=== PATIENT | female | born 1925 | race Caucasian/White ===

== ENCOUNTER 2016-07-23 07:23 | Emergency (ER) | payer MEDICARE ==
[2016-07-23] MEDS ORDERED: Acetaminophen 325 MG TAB ONE (08:24)
[2016-07-23 08:28] LABS: ALT (SGPT) 10 U/L (0-55); AST (SGOT) 18 U/L (5-34); Alkaline Phosphatase 92 U/L (40-150); Anion Gap 17 mmol/L (10-20); BUN (Urea Nitrogen) 12 mg/dL (9.8-20.1); Bilirubin, Total 0.8 mg/dL (0.2-1.2); CK (CPK) 50 U/L (29-168); Calc. Creatinine Clearance 0 mL/min (70-130); Calcium 8.8 mg/dL (7.8-10.44); Carbon Dioxide 24 mmol/L (23-31); Chloride 102 mmol/L (98-107); Estimated GFR-MDRD 72; Protein, Total 6.7 g/dL (5.8-8.1)
[2016-07-23 08:32] LABS: Troponin I Less than 0.010 ng/mL (< 0.028)
[2016-07-23 08:40] LABS: Band 3 % (5-11); Hematocrit 40.4 % (36.0-47.0); Hypochromia SLIGHT = 6-15 cells (100X) (0-5/hpf); Mean Platelet Volume 7.1 fL (7.4-10.4); Neutrophil 65 % (42-75); White Blood Cell (WBC) Count 5.2 thou/uL (4.8-10.8)
[2016-07-23 09:10] LABS: Bilirubin Negative (Negative); Blood, Urine Negative (Negative); Glucose, Urine (Dipstick) Negative (Negative); Ketone, Urine Trace mg/dL (Negative); Nitrite Negative (Negative); Protein, Urine (Dipstick) Negative (Neg-Trace)
[2016-07-23 09:19] LABS: Bacteria/HPF Rare-Few HPF (None Seen); RBC/HPF None Seen HPF (0-3); WBC/HPF 0-3 HPF (0-3)
--- NOTE | 2016-07-23 09:45 | RAD ---
SINGLE VIEW CHEST HISTORY: Weakness, left arm pain, and left chest pain. COMPARISON: 03/22/2016 FINDINGS: A single view of the chest shows a normal sized cardiomediastinal silhouette. The pacem josé is unchanged in position. There is no evidence of consolidation, mass, or pleural effusion. D egenerative changes are seen in the spine and shoulders. IMPRESSION No evidence of acute cardiopulmonary disease. POS: MED
--- NOTE | 2016-07-23 11:08 | ERRECORD ---
[facility] EMERGENCY RECORD HPI WEAK-DIZZY (09:12 JROB) CHIEF COMPLAINT: Patient presents for evaluation of weakness. HISTORIAN: History provided by patient, History provided by patient's family, 89 year old female presents with multiple complaints, including general weakness, headache, chest tightness, left arm pain. She awoke at 2am with symptoms, states she feels "wore out". LOCATION: Symptoms are localized, most severe in head and chest. SEVERITY: Current severity of pain rated as 3/10. TIME COURSE: Sudden onset of symptoms, Symptoms are improving. ASSOCIATED WITH: Associated with chest pain, No associated chills, No associated fever, Associated with headache, No associated nausea, No associated palpitations, No associated vomiting. EXACERBATED BY: Patient's condition exacerbated by nothing. RELIEVED BY: Patient's condition relieved by nothing. ROS (09:14 JROB) CONSTITUTIONAL: Historian denies chills, denies fever, reports weakness, reports weight loss. EYES: Historian denies vision changes. ENT: Historian denies sore throat. CARDIOVASCULAR: Historian reports chest pain, denies syncope. RESPIRATORY: Historian denies cough, denies shortness of breath. GI: Historian denies nausea, denies vomiting. GENITOURINARY FEMALE: Historian denies dysuria. MUSCULOSKELETAL: Historian denies back pain, denies neck pain. SKIN: Historian denies rash. NEUROLOGIC: Historian reports confusion, reports headache. HEMO/LYMPHATIC: Historian denies abnormal blood clotting. ALLERGIC/IMMUNOLOGIC: Historian denies frequent infections. NOTES: All systems reviewed, negative except as described above. PAST MEDICAL HISTORY (07:50 BDON) MEDICAL HISTORY: Past medical history includes cardiac history, coronary artery disease, unspecified arrhythmia, Treated with a pacemaker, Past medical history includes history of diabetes, on insulin, Past medical history includes endocrine disease, hypothyroidism, Past medical history includes history of hyperlipidemia, high cholesterol, Past medical history includes history of hypertension, which has been treated, Past medical history includes neurological disease, peripheral neuropathy. FEMALE SURGICAL HISTORY: Surgical history of cholecystectomy, Surgical history of hysterectomy, Surgical history of thyroidectomy. SOCIAL HISTORY: Social History includes 2nd hand smoke exposure, Patient denies alcohol use, Patient denies drug use, &a-1R&a+25V*p+0X*[id number]*c202B*c15G*c2P*p-0X&a-25V&a+1R Name: Sheri Rojas : 1925 F89 MedRec: [id number] AcctNum: [id number] Prepared: Courtney Jul 23, 2016 12:33 by Interface Page 1 of 5 pMD [facility] EMERGENCY RECORD Patient has no smoking history. KNOWN ALLERGIES fentaNYL No Known Drug Allergies (Unconfirmed) pregabalin (bulk) traMADol CURRENT MEDICATIONS furosemide: TABLET : Strength - 20 mg : ORAL Patient Dose: 1 tab(s) Oral once a day (in the morning). (08:44 BDON) levothyroxine: TABLET : Strength - 100 mcg : ORAL Patient Dose: 1 tab(s) Oral once a day (in the morning). (08:44 BDON) pravastatin: TABLET : Strength - 80 mg : ORAL Patient Dose: 1 tab(s) Oral once a day (in the evening). (08:44 BDON) lisinopril: TABLET : Strength - 5 mg : ORAL Patient Dose: 1 tab(s) Oral once a day (at bedtime). (08:44 BDON) Centrum Silver: TABLET : ORAL Patient Dose: 1 tab(s) Oral once a day (in the morning). (08:44 BDON) temazepam: CAPSULE : Strength - 30 mg : ORAL Patient Dose: once a day (at bedtime). (08:44 BDON) Acetaminophen Extra Strength: TABLET : Strength - 500 mg : ORAL Patient Dose: 1 to 2 every 4 hours prn. (08:46 BDON) Aspirin Low Dose: TABLET, DELAYED RELEASE (ENTERIC COATED) : Strength - 81 mg : ORAL Patient Dose: 4 once a day. (08:46 BDON) gabapentin: CAPSULE : Strength - 400 mg : ORAL Patient Dose: 3 times a day. (08:47 BDON) Levemir: VIAL (ML) : Strength - 100 unit/mL : SUBCUTANEOUS Patient Dose: 12 units once a day (at bedtime). (08:47 BDON) meTOPROLOL tartrate: TABLET : Strength - 50 mg : ORAL Patient Dose: once a day. (08:49 BDON) omeprazole: CAPSULE,DELAYED RELEASE (ENTERIC COATED) : Strength - 40 mg : ORAL &a-1R&a+25V*p+0X*[id number]*c202B*c15G*c2P*p-0X&a-25V&a+1R Name: Sheri Rojas : 1925 F89 MedRec: [id number] AcctNum: [id number] Prepared: Courtney Jul 23, 2016 12:33 by Interface Page 2 of 5 pMD [facility] EMERGENCY RECORD Patient Dose: once a day. (08:50 BDON) VITAL SIGNS VITAL SIGNS: BP: 134/61, Pulse: 80, Resp: 18, Pain: 3, O2 sat: 97, Time: 07/23/2016 07:38. (07:38 BDON) Temp: 98.5 (Oral), Time: 07/23/2016 07:40. (07:40 BDON) BP: 144/57, Pulse: 60, Resp: 15, O2 sat: 95, Time: 07/23/2016 08:00. (08:00 BDON) BP: 141/65, Pulse: 80, Resp: 17, O2 sat: 98, Time: 07/23/2016 09:00. (09:00 BDON) BP: 138/49, Pulse: 60, Resp: 18, Pain: 1, O2 sat: 98, Time: 07/23/2016 09:00. (09:00 BDON) BP: 138/49, Pulse: 61, Resp: 13, Pain: 0, O2 sat: 98, Time: 07/23/2016 09:31. (09:31 BDON) BP: 125/57, Pulse: 61, Resp: 18, Pain: 0, O2 sat: 96, Time: 07/23/2016 10:00. (10:00 BDON) BP: 126/51, Pulse: 60, Resp: 18, O2 sat: 97, Time: 07/23/2016 10:30. (10:30 BDON) BP: 154/71, Pulse: 65, Resp: 22, O2 sat: 97, Time: 07/23/2016 11:00. (11:00 BDON) BP: 141/50, Pulse: 60, Resp: 20, Pain: 0, O2 sat: 97, Time: 07/23/2016 11:31. (11:31 BDON) BP: 134/50, Pulse: 67, Resp: 18, Pain: 0, O2 sat: 97, Time: 07/23/2016 12:00. (12:00 BDON) PHYSICAL EXAM (09:14 JROB) CONSTITUTIONAL: Vital signs reviewed, Patient afebrile, Pulse normal, Blood pressure normal, Respiratory rate normal, Patient alert and oriented to person, place and time. HEAD: Head exam normal, Head exam included findings of head atraumatic. EYES: Eye exam normal, Pupils equally round and reactive to light, Extraocular muscles intact. ENT: Pharynx exam normal, Mouth exam normal. NECK: Neck exam normal, Neck exam included findings of normal range of motion. RESPIRATORY CHEST: Breath sounds clear, No wheezing, No rales, No rhonchi. CARDIOVASCULAR: Cardiovascular assessment normal, Cardiovascular exam included findings of heart rate regular rate and rhythm, Heart sounds normal. ABDOMEN FEMALE: Abdominal exam included findings of abdomen nontender, no distension, no peritoneal signs. BACK: Back exam normal, Back exam included findings of normal inspection. UPPER EXTREMITY: Upper extremity exam normal, Upper extremity exam included findings of inspection normal, Motor strength normal, Sensation intact. LOWER EXTREMITY: Lower extremity exam normal, Lower extremity exam included findings of inspection normal, Motor strength normal, &a-1R&a+25V*p+0X*g4205N*c202B*c15G*c2P*p-0X&a-25V&a+1R Name: Sheri Rojas : 1925 F89 MedRec: [id number] AcctNum: [id number] Prepared: Courtney Jul 23, 2016 12:33 by Interface Page 3 of 5 D [facility] EMERGENCY RECORD Sensation intact. NEURO: Neuro exam findings include patient oriented to person, place and time, no focal motor deficits, no focal sensory deficits, heel to noyola is clumsy bilaterally. SKIN: Skin exam included findings of skin warm, dry. EKG INTERPRETATION (07:52 JROB) 12 LEAD EKG INTERPRETATION: 12 lead EKG interpreted by Emergency Department Physician at time of study, 12 lead EKG shows, paced rhythm, Rate (beats per minute): 74, with no ectopics, Conduction with, T waves normal, Clinical impression:, Ventricular pacing, normal capture. RADIOLOGYINTERPRETATION (09:54 JROB) CHEST: Chest films negative, no acute cardiopulmonary findings. SILK EXAMINER: Preliminary review of x-rays by, Radiologist. MEDICATION ADMINISTRATION SUMMARY Drug Name: Tylenol, Dose Ordered: 650 mg, Route: Oral, Status: Given, Time: 08:28 07/23/2016, Drug Name: aspirin oral, Dose Ordered: 324 mg, Route: Oral, Status: Given, Time: 08:28 07/23/2016, Detailed record available in Medication Service section. DOCTOR NOTES (09:56 JROB) TEXT: Cardiac enzymes negative x 1 set. Labs notable for glucose 260, otherwise unremarkable. Will give subq insulin. Family has requested transfer to [place] since patient is followed by physicians there. Discussed with Dr. Restrepo at [facility], will proceed with transfer. PATIENT STATUS: Patient has improved since arrival to emergency department. PATIENT PLAN: The patient requires a transfer and will be transferred, per family request, due to availability of specialty care, Transfer form completed. DATA REVIEWED: Lab data reviewed, Xray data reviewed, Reviewed EKG. PROBLEM LIST No recorded problems DIAGNOSIS DIFFERENTIAL: Based on history, exam and ancillary studies if indicated: Impression: acute coronary syndrome, Impression: acute myocardial infarction, Impression: atypical chest pain, Impression: chest pain of unclear etiology, Impression: chest wall pain, Impression: GERD, Impression: generalized weakness, Impression: lightheadedness, &a-1R&a+25V*p+0X*[id number]*c202B*c15G*c2P*p-0X&a-25V&a+1R Name: Sheri Rojas : 1925 F89 MedRec: [id number] AcctNum: [id number] Prepared: Courtney Jul 23, 2016 12:33 by Interface Page 4 of 5 pMD [facility] EMERGENCY RECORD Impression: cardiovascular event, Impression: electrolyte abnormality, Impression: dehydration, Impression: UTI, Impression: infection, Impression: depression, Diagnoses considered are not limited to those documented above. (09:58 JROB) FINAL: PRIMARY: CHEST PAIN UNSPECIFIED, ADDITIONAL: Weakness. (09:59 JROB) PRESCRIPTION No recorded prescriptions DISPOSITION PATIENT: Disposition Type: Transfer, Disposition: [facility]. (09:59 JROB) Patient left the department. (12:29 BDON) King: BDON=Luis, RN, Luisa ROBERTSONOB=MD Jose R, Paco &a-1R&a+25V*p+0X*s5170X*c202B*c15G*c2P*p-0X&a-25V&a+1R Name: Sheri Rojas : 1925 F89 MedRec: [id number] AcctNum: [id number] Prepared: Courtney Jul 23, 2016 12:33 by Interface Page 5 of 5 pMD [facility]TDD
--- NOTE | 2016-07-23 11:41 | PICIS ---
[facility] EMERGENCY RECORD TRIAGE (SunJul 23, 2016 07:28 BDON) TRIAGE NOTES: Weakness, hurts all over, left arm pain, headache and left chest pain. (SunJul 23, 2016 07:28 BDON) PATIENT: NAME: Sheri Rojas, AGE: 89, GENDER: female, : [id number], TIME OF GREET: SunJul 23, 2016 07:24, PREFERRED LANGUAGE: Senegalese, ETHNICITY: Not or , ECODE BILLING MAP: [facility], SSN: [id number], Zip Code: [address], KG WEIGHT: 61.23, PHONE: , , , PERSON ID: [id number], PCP: out of town. (SunJul 23, 2016 07:28 BDON) COMPLAINT: MULTIPLE COMPLAINTS. (07:37 MCBE) ADMISSION: URGENCY: 2 Emergent, ADMISSION SOURCE: Home, TRANSPORT: Walk-in, BED: TRIAGE. (SunJul 23, 2016 07:28 BDON) ASSESSMENT: Assessment: Left side chest pain, feels weak, generalized pain and a headache, Symptoms began 6 hours ago. (07:50 BDON) LMP: LMP: Menopause. (07:50 BDON) TREATMENTS IN PROGRESS: Treatments given Prehospital: none. (07:50 BDON) PROVIDERS: TRIAGE NURSE: Luisa Smith RN. (SunJul 23, 2016 07:28 BDON) PREVIOUS VISIT ALLERGIES: No Known Drug Allergies. (SunJul 23, 2016 07:28 BDON) No Known Drug Allergies. (07:50 BDON) KNOWN ALLERGIES fentaNYL No Known Drug Allergies (Unconfirmed) pregabalin (bulk) traMADol CURRENT MEDICATIONS furosemide: TABLET : Strength - 20 mg : ORAL Patient Dose: 1 tab(s) Oral once a day (in the morning). (08:44 BDON) levothyroxine: TABLET : Strength - 100 mcg : ORAL Patient Dose: 1 tab(s) Oral once a day (in the morning). (08:44 BDON) pravastatin: TABLET : Strength - 80 mg : ORAL Patient Dose: 1 tab(s) Oral once a day (in the evening). (08:44 BDON) lisinopril: TABLET : Strength - 5 mg : ORAL Patient Dose: 1 tab(s) Oral once a day (at bedtime). (08:44 BDON) Centrum Silver: TABLET : ORAL &a-1R&a+25V*p+0X*c0610W*c202B*c15G*c2P*p-0X&a-25V&a+1R Name: Sheri Rojas : 1925 F89 MedRec: [id number] AcctNum: [id number] Prepared: Courtney Jul 23, 2016 12:39 by Interface Page 1 of 11 pMD [facility] EMERGENCY RECORD Patient Dose: 1 tab(s) Oral once a day (in the morning). (08:44 BDON) temazepam: CAPSULE : Strength - 30 mg : ORAL Patient Dose: once a day (at bedtime). (08:44 BDON) Acetaminophen Extra Strength: TABLET : Strength - 500 mg : ORAL Patient Dose: 1 to 2 every 4 hours prn. (08:46 BDON) Aspirin Low Dose: TABLET, DELAYED RELEASE (ENTERIC COATED) : Strength - 81 mg : ORAL Patient Dose: 4 once a day. (08:46 BDON) gabapentin: CAPSULE : Strength - 400 mg : ORAL Patient Dose: 3 times a day. (08:47 BDON) Levemir: VIAL (ML) : Strength - 100 unit/mL : SUBCUTANEOUS Patient Dose: 12 units once a day (at bedtime). (08:47 BDON) meTOPROLOL tartrate: TABLET : Strength - 50 mg : ORAL Patient Dose: once a day. (08:49 BDON) omeprazole: CAPSULE,DELAYED RELEASE (ENTERIC COATED) : Strength - 40 mg : ORAL Patient Dose: once a day. (08:50 BDON) VITAL SIGNS VITAL SIGNS: BP: 134/61, Pulse: 80, Resp: 18, Pain: 3, O2 sat: 97, Time: 07/23/2016 07:38. (07:38 BDON) Temp: 98.5 (Oral), Time: 07/23/2016 07:40. (07:40 BDON) BP: 144/57, Pulse: 60, Resp: 15, O2 sat: 95, Time: 07/23/2016 08:00. (08:00 BDON) BP: 141/65, Pulse: 80, Resp: 17, O2 sat: 98, Time: 07/23/2016 09:00. (09:00 BDON) BP: 138/49, Pulse: 60, Resp: 18, Pain: 1, O2 sat: 98, Time: 07/23/2016 09:00. (09:00 BDON) BP: 138/49, Pulse: 61, Resp: 13, Pain: 0, O2 sat: 98, Time: 07/23/2016 09:31. (09:31 BDON) BP: 125/57, Pulse: 61, Resp: 18, Pain: 0, O2 sat: 96, Time: 07/23/2016 10:00. (10:00 BDON) BP: 126/51, Pulse: 60, Resp: 18, O2 sat: 97, Time: 07/23/2016 10:30. (10:30 BDON) BP: 154/71, Pulse: 65, Resp: 22, O2 sat: 97, Time: 07/23/2016 11:00. (11:00 BDON) BP: 141/50, Pulse: 60, Resp: 20, Pain: 0, O2 sat: 97, Time: 07/23/2016 11:31. (11:31 BDON) BP: 134/50, Pulse: 67, Resp: 18, Pain: 0, O2 sat: 97, Time: 07/23/2016 12:00. (12:00 BDON) NURSING ASSESSMENT: CARDIOVASCULAR (08:00 BDON) CONSTITUTIONAL: Patient arrives, via hospital wheelchair, History &a-1R&a+25V*p+0X*o9251V*c202B*c15G*c2P*p-0X&a-25V&a+1R Name: Sheri Roajs : 1925 F89 MedRec: [id number] AcctNum: [id number] Prepared: Courtney Jul 23, 2016 12:39 by Interface Page 2 of 11 pMD [facility] EMERGENCY RECORD obtained from patient, Patient appears comfortable, Patient cooperative, Patient alert, Patient is, confused, intermittent confusion, family states normal, hard of hearing, Skin warm, Skin dry, Skin normal in color. CARDIOVASCULAR: Cardiovascular assessment findings include heart rate normal, Associated with weakness, Notes: paced. RESPIRATORY/CHEST: Respiratory assessment findings include respiratory effort easy, Respirations regular, Conversing normally, Neck and chest exam findings include trachea midline. SAFETY: Cart/Stretcher in lowest position. NURSING PROCEDURE: BROWN SOURER (07:30 BDON) PATIENT IDENTIFIER: Patient actively involved in identification process. BROWN SOURER: Cardiac monitoring indicated for complaint of chest pain, Patient placed on cardiac nurse, Patient placed on non-invasive blood pressure monitor, Patient placed on continuous pulse oximetry. SAFETY: Hospital ID band on. NURSING PROCEDURE: EKG CHART (07:28 BDON) EK lead EKG performed on the left chest. NURSING PROCEDURE: IV (08:13 BDON) PATIENT IDENITIFIER: Patient actively involved in identification process. IV SITE 1: IV established, to the right hand, using a 22 gauge catheter, in one attempt, Labs drawn at time of placement, labeled in the presence of the patient and sent to lab. NURSING PROCEDURE: NURSE NOTES NURSES NOTES: Notes: placed on bedpan. (08:42 BDON) Notes: Wheelchair to restroom. (08:50 BDON) Notes: Family and patient aware we are "working" on transfer. (09:54 BDON) Warm blanket given to patient, Notes: Aware we are waiting on acceptance. (10:20 BDON) Notes: Family concerned about time frame of not having acceptance, explained procedure. (10:39 BDON) Meal tray given to patient. (11:00 BDON) Notes: transfer request was initiated at 0841 but having difficulty in gaining acceptance. Dr. Odell spoke with Dr. Swann who wanted to speak with Pt's before acceptance. Have not had response. Requested Transfer Center do follow up and request that transfer process be expedited - patient and family kept informed regarding the acceptance efforts made. Both are cooperative though anxious to be moved. Daughter inquired if patient could be released and her drive her over but explained the need for ambulance for monitoring of EKG, IV and pt. status. Agreeable to await acceptance and transfer &a-1R&a+25V*p+0X*d7447B*c202B*c15G*c2P*p-0X&a-25V&a+1R Name: Sheri Rojas : 1925 F89 MedRec: [id number] AcctNum: [id number] Prepared: Courtney Jul 23, 2016 12:39 by Interface Page 3 of 11 D [facility] EMERGENCY RECORD via ambulance. (11:20 BELE) Notes: Acceptance from [facility], family aware. (12:07 BDON) NURSING PROCEDURE: TRANSFER (12:20 BDON) TRANSFER: Reason for transfer patient request, Diagnosis: Chest Pain, Accepting institution: [facility], Accepting physician: Mahesh, Referring physician: Jose R, Transported by urgent ambulance, accompanied by emergency medical services personnel, Copy of patient record prepared for receiving facility, Copy of diagnostic studies, Status of patient's valuables documented on chart, Medication reconciliation form prepared and sent to receiving facility. ORDER DETAILS Order Name: Cardiac Profile w/CKMB & Troponin - I, Status: Active, Time: 07:39 07/23/2016, User: AGUILAR, - Ordered for: MD Odell Joseph, - Entered by: MD Odell Joseph - Courtney Jul 23, 2016 07:39, - Quantity: 1, Order Name: CBC with Differential, Status: Active, Time: 07:39 07/23/2016, User: AGUILAR, - Ordered for: MD Odell Joseph, - Entered by: MD Odell Joseph - Courtney Jul 23, 2016 07:39, - Quantity: 1, Order Name: CK (CPK), Status: Active, Time: 07:39 07/23/2016, User: AGUILAR, - Ordered for: MD Odell Joseph, - Entered by: MD Odell Joseph - Courtney Jul 23, 2016 07:39, - Quantity: 1, Order Name: Comprehensive Metabolic Panel, Status: Active, Time: 07:39 07/23/2016, User: AGUILAR, - Ordered for: MD Odell Joseph, - Entered by: MD Odell Joseph - Courtney Jul 23, 2016 07:39, - Quantity: 1, Order Name: Culture, Urine, Status: Active, Time: 08:07 07/23/2016, User: AGUILAR, - Ordered for: MD Odell Joseph, - Entered by: MD Odell Joseph - Courtney Jul 23, 2016 08:07, - Quantity: 1, Order Name: EKG 12 Lead in Emergency Room, Status: Active, Time: 07:39 07/23/2016, User: AGUILAR, - Ordered for: MD Odell Joseph, - Entered by: MD Odell Joseph - Sun Jul 23, 2016 07:39, - Quantity: 1, Order Name: SALINE LOCK, Status: Done, Time: 08:08 07/23/2016, User: AIDA, - Ordered for: MD Odell Joseph, - Entered by: MD Odell Joseph - Sun Jul 23, 2016 07:39, &a-1R&a+25V*p+0X*e6196D*c202B*c15G*c2P*p-0X&a-25V&a+1R Name: Sheri Rojas : 1925 F89 MedRec: [id number] AcctNum: [id number] Prepared: Courtney Jul 23, 2016 12:39 by Interface Page 4 of 11 [facility] EMERGENCY RECORD - Quantity: 1, Order Name: Urinalysis with Microscopic, Status: Active, Time: 08:07 07/23/2016, User: AGUILAR, - Ordered for: MD Odell Joseph, - Entered by: MD Odell Joseph - Sun Jul 23, 2016 08:07, - Quantity: 1, Order Name: XR Chest 1 View Portable, Status: Active, Time: 07:39 07/23/2016, User: AGUILAR, - Ordered for: MD Odell Joseph, - Entered by: MD Odell Joseph - Sun Jul 23, 2016 07:39, - Quantity: 1. MEDICATION ADMINISTRATION SUMMARY Drug Name: Tylenol, Dose Ordered: 650 mg, Route: Oral, Status: Given, Time: 08:28 07/23/2016, Drug Name: aspirin oral, Dose Ordered: 324 mg, Route: Oral, Status: Given, Time: 08:28 07/23/2016, Detailed record available in Medication Service section. MEDICATION SERVICE ( AGUILAR) aspirin oral: Order: aspirin oral (aspirin) - Dose: 324 mg : Oral Schedule: Now Ordered by: Paco Odell MD Entered by: MD Courtney Hirsch Jul 23, 2016 08:06 Documented as given by: DAMIEN Eduardo Jul 23, 2016 08:28 Patient, Medication, Dose, Route and Time verified prior to administration. Site: Medication administered P.O., Correct patient, time, route, dose and medication confirmed prior to administration, Patient advised of actions and side-effects prior to administration, Allergies confirmed and medications reviewed prior to administration. Tylenol: Order: Tylenol (acetaminophen) - Dose: 650 mg : Oral Schedule: Now Ordered by: Paco Odell MD Entered by: MD Courtney Hirsch Jul 23, 2016 08:06 Documented as given by: DAMIEN Eduardo Jul 23, 2016 08:28 Patient, Medication, Dose, Route and Time verified prior to administration. Site: Medication administered P.O., Correct patient, time, route, dose and medication confirmed prior to administration, Patient advised of actions and side-effects prior to administration, Allergies confirmed and medications reviewed prior to administration. HPI WEAK-DIZZY (09:12 JROB) CHIEF COMPLAINT: Patient presents for evaluation of weakness. HISTORIAN: History provided by patient, History provided by patient's family, 89 year old female &a-1R&a+25V*p+0X*o4120H*c202B*c15G*c2P*p-0X&a-25V&a+1R Name: Sheri Rojas : 1925 F89 MedRec: [id number] AcctNum: [id number] Prepared: Courtney Jul 23, 2016 12:39 by Interface Page 5 of 11 pMD [facility] EMERGENCY RECORD presents with multiple complaints, including general weakness, headache, chest tightness, left arm pain. She awoke at 2am with symptoms, states she feels "wore out". LOCATION: Symptoms are localized, most severe in head and chest. SEVERITY: Current severity of pain rated as 3/10. TIME COURSE: Sudden onset of symptoms, Symptoms are improving. ASSOCIATED WITH: Associated with chest pain, No associated chills, No associated fever, Associated with headache, No associated nausea, No associated palpitations, No associated vomiting. EXACERBATED BY: Patient's condition exacerbated by nothing. RELIEVED BY: Patient's condition relieved by nothing. ROS (09:14 JROB) CONSTITUTIONAL: Historian denies chills, denies fever, reports weakness, reports weight loss. EYES: Historian denies vision changes. ENT: Historian denies sore throat. CARDIOVASCULAR: Historian reports chest pain, denies syncope. RESPIRATORY: Historian denies cough, denies shortness of breath. GI: Historian denies nausea, denies vomiting. GENITOURINARY FEMALE: Historian denies dysuria. MUSCULOSKELETAL: Historian denies back pain, denies neck pain. SKIN: Historian denies rash. NEUROLOGIC: Historian reports confusion, reports headache. HEMO/LYMPHATIC: Historian denies abnormal blood clotting. ALLERGIC/IMMUNOLOGIC: Historian denies frequent infections. NOTES: All systems reviewed, negative except as described above. PAST MEDICAL HISTORY (07:50 BDON) MEDICAL HISTORY: Past medical history includes cardiac history, coronary artery disease, unspecified arrhythmia, Treated with a pacemaker, Past medical history includes history of diabetes, on insulin, Past medical history includes endocrine disease, hypothyroidism, Past medical history includes history of hyperlipidemia, high cholesterol, Past medical history includes history of hypertension, which has been treated, Past medical history includes neurological disease, peripheral neuropathy. FEMALE SURGICAL HISTORY: Surgical history of cholecystectomy, Surgical history of hysterectomy, Surgical history of thyroidectomy. SOCIAL HISTORY: Social History includes 2nd hand smoke exposure, Patient denies alcohol use, Patient denies drug use, Patient has no smoking history. PHYSICAL EXAM (09:14 JROB) CONSTITUTIONAL: Vital signs reviewed, Patient afebrile, Pulse &a-1R&a+25V*p+0X*y5533Z*c202B*c15G*c2P*p-0X&a-25V&a+1R Name: Sheri Rojas : 1925 F89 MedRec: [id number] AcctNum: [id number] Prepared: Courtney Jul 23, 2016 12:39 by Interface Page 6 of 11 pMD [facility] EMERGENCY RECORD normal, Blood pressure normal, Respiratory rate normal, Patient alert and oriented to person, place and time. HEAD: Head exam normal, Head exam included findings of head atraumatic. EYES: Eye exam normal, Pupils equally round and reactive to light, Extraocular muscles intact. ENT: Pharynx exam normal, Mouth exam normal. NECK: Neck exam normal, Neck exam included findings of normal range of motion. RESPIRATORY CHEST: Breath sounds clear, No wheezing, No rales, No rhonchi. CARDIOVASCULAR: Cardiovascular assessment normal, Cardiovascular exam included findings of heart rate regular rate and rhythm, Heart sounds normal. ABDOMEN FEMALE: Abdominal exam included findings of abdomen nontender, no distension, no peritoneal signs. BACK: Back exam normal, Back exam included findings of normal inspection. UPPER EXTREMITY: Upper extremity exam normal, Upper extremity exam included findings of inspection normal, Motor strength normal, Sensation intact. LOWER EXTREMITY: Lower extremity exam normal, Lower extremity exam included findings of inspection normal, Motor strength normal, Sensation intact. NEURO: Neuro exam findings include patient oriented to person, place and time, no focal motor deficits, no focal sensory deficits, heel to noyola is clumsy bilaterally. SKIN: Skin exam included findings of skin warm, dry. LAB INTERPRETATION (09:54 JROB) INTERPRETATION: I reviewed the lab results, CBC normal, Chemistry abnormal, Glucose elevated, Chemistry otherwise normal, Cardiac enzymes normal, Urinalysis abnormal, positive for ketones, small leuk esterase, no WBC's, 7-10 squamous cells. EVENTS TRANSFER: Triage to Emergency Triage. (07:28 BDON) Emergency Triage to Emergency Room -02. (07:39 BDON) Removed from Emergency Emergency Room -02. (12:29 BDON) RADIOLOGYINTERPRETATION (09:54 JROB) CHEST: Chest films negative, no acute cardiopulmonary findings. CONSTRUCTION QUALITY CONTROL MANAGER: Preliminary review of x-rays by, Radiologist. EKG INTERPRETATION (07:52 JROB) 12 LEAD EKG INTERPRETATION: 12 lead EKG interpreted by Emergency Department Physician at time of study, 12 lead EKG shows, paced rhythm, Rate (beats per minute): 74, with no ectopics, Conduction with, T waves normal, Clinical impression:, &a-1R&a+25V*p+0X*f6307G*c202B*c15G*c2P*p-0X&a-25V&a+1R Name: Sheri Rojas : 1925 F89 MedRec: [id number] AcctNum: [id number] Prepared: Courtney Jul 23, 2016 12:39 by Interface Page 7 of 11 pMD [facility] EMERGENCY RECORD Ventricular pacing, normal capture. O2SAT INTERPRETATION (09:56 JROB) O2SAT: Single pulse oximetry, Oxygen saturation 98%, on room air, Oxygen saturation interpretation: Normal, No intervention required. DOCTOR NOTES (09:56 JROB) TEXT: Cardiac enzymes negative x 1 set. Labs notable for glucose 260, otherwise unremarkable. Will give subq insulin. Family has requested transfer to [place] since patient is followed by physicians there. Discussed with Dr. Restrepo at [facility], will proceed with transfer. PATIENT STATUS: Patient has improved since arrival to emergency department. PATIENT PLAN: The patient requires a transfer and will be transferred, per family request, due to availability of specialty care, Transfer form completed. DATA REVIEWED: Lab data reviewed, Xray data reviewed, Reviewed EKG. PROBLEM LIST No recorded problems DIAGNOSIS DIFFERENTIAL: Based on history, exam and ancillary studies if indicated: Impression: acute coronary syndrome, Impression: acute myocardial infarction, Impression: atypical chest pain, Impression: chest pain of unclear etiology, Impression: chest wall pain, Impression: GERD, Impression: generalized weakness, Impression: lightheadedness, Impression: cardiovascular event, Impression: electrolyte abnormality, Impression: dehydration, Impression: UTI, Impression: infection, Impression: depression, Diagnoses considered are not limited to those documented above. (09:58 JROB) FINAL: PRIMARY: CHEST PAIN UNSPECIFIED, ADDITIONAL: Weakness. (09:59 JROB) DISPOSITION PATIENT: Disposition Type: Transfer, Disposition: [facility]. (09:59 JROB) Patient left the department. (12:29 BDON) PRESCRIPTION No recorded prescriptions IMAGING *EKG: Image captured from scanner. (11:46 BELE) CONSENTS: Image captured from scanner. (12:08 BELE) &a-1R&a+25V*p+0X*r9092M*c202B*c15G*c2P*p-0X&a-25V&a+1R Name: Sheri Rojas : 1925 F89 MedRec: [id number] AcctNum: [id number] Prepared: Courtney Jul 23, 2016 12:39 by Interface Page 8 of 11 pMD [facility] EMERGENCY RECORD MEMORAN: Image captured from scanner. (12:08 BELE) *SUPPLY CHARGE SHEET: Image captured from scanner. (12:28 BDON) ADMIN DIGITAL SIGNATURE: MD Odell Joseph. (09:59 JROB) MD Odell Joseph. (10:00 JROB) DAMIEN Smith, Luisa. (12:29 BDON) RESULTS RADIOLOGY: XR Chest 1 View Portable Observe DT: [place] Jul 23, 2016 07:41, CXRP SINGLE VIEW CHEST HISTORY: Weakness, left arm pain, and left chest pain. COMPARISON: 03/22/2016 FINDINGS: A single view of the chest shows a normal sized cardiomediastinal silhouette. The pacem josé is unchanged in position. There is no evidence of consolidation, mass, or pleural effusion. D egenerative changes are seen in the spine and shoulders. IMPRESSION No evidence of acute cardiopulmonary disease. POS: MED . (09:59 JROB) LABORATORY: CK (CPK) Collection DT: [place] Jul 23, 2016 08:09, CK (CPK) 50 U/L, Range (29-168). (08:32 JROB) Comprehensive Metabolic Panel Collection DT: [place] Jul 23, 2016 08:09, Sodium 138 mmol/L, Range (136-145), Potassium 4.7 mmol/L, Range (3.5-5.1), Chloride 102 mmol/L, Range (98-107), Carbon Dioxide 24 mmol/L, Range (23-31), Anion Gap 17 mmol/L, Range (10-20), BUN (Urea Nitrogen) 12 mg/dL, Range (9.8-20.1), Creatinine 0.76 mg/dL, Range (0.6-1.1), Estimated GFR-MDRD 72 , Reference Range for Estimated GFR: Greater than 90, mL/min/1.73 m2 NOTE: The MDRD equation has not been validated for use, with the elderly (over 70 years of age), women, patients with, serious comorbid condition or persons with extremes of body size, muscle, mass, or nutritional status. , *Glucose 260 - H mg/dL, Range (83-110), Calcium 8.8 mg/dL, Range (7.8-10.44), Bilirubin, Total 0.8 mg/dL, Range (0.2-1.2), &a-1R&a+25V*p+0X*p3381C*c202B*c15G*c2P*p-0X&a-25V&a+1R Name: Sheri Rojas : 1925 F89 MedRec: [id number] AcctNum: [id number] Prepared: Courtney Jul 23, 2016 12:39 by Interface Page 9 of 11 pMD [facility] EMERGENCY RECORD Protein, Total 6.7 g/dL, Range (5.8-8.1), NOTE: Plasma values are generally 0.3 to 0.5 g/dL higher than serum values, due to the presence of fibrinogen. , Albumin 3.7 g/dL, Range (3.4-4.8), Globulin 3.0 g/dL, Range (2.4-3.5), Alb/Glob Ratio 1.2 g/dL, Range (1.2-2.2), Alkaline Phosphatase 92 U/L, Range (40-150), AST (SGOT) 18 U/L, Range (5-34), ALT (SGPT) 10 U/L, Range (0-55). (08:32 JROB) Urinalysis with Microscopic Collection DT: Courtney Jul 23, 2016 09:03, Color Yellow , Range (Yellow), Clarity Hazy , Range (Clear), Specific Rifle, Urine 1.015 , Range (1.005-1.030), pH, Urine 7.0 , Range (5.0-9.0), *Leukocyte Small - H , Range (Negative), Nitrite Negative , Range (Negative), Protein, Urine (Dipstick) Negative mg/dL, Range (Neg-Trace), Glucose, Urine (Dipstick) Negative mg/dL, Range (Negative), *Ketone, Urine Trace - H mg/dL, Range (Negative), *Urobilinogen 4.0 - H mg/dL, Range (0.2-1.0), Bilirubin Negative , Range (Negative), Blood, Urine Negative , Range (Negative), RBC/HPF None Seen HPF, Range (0-3), WBC/HPF 0-3 HPF, Range (0-3), *Squamous Epithelial 7-10 - H HPF, Range (0-3), Bacteria/HPF Rare-Few HPF, Range (None Seen). (09:30 JROB) CBC with Differential Collection DT: Courtney Jul 23, 2016 08:09, White Blood Cell (WBC) Count 5.2 thou/uL, Range (4.8-10.8), Red Blood Cell (RBC) Count 4.30 mill/uL, Range (4.20-5.40), Hemoglobin 13.1 g/dL, Range (12.0-16.0), Hematocrit 40.4 %, Range (36.0-47.0), Mean Corpuscular Volume 94.1 fl, Range (81.0-99.0), Mean Corpuscular Hemoglobin 30.4 pg, Range (27.0-31.0), Mean Corpuscular HGB CONC 32.3 g/dL, Range (32.0-36.0), RBC Distribution Width 12.1 %, Range (11.5-14.5), Platelet Count 202 thou/uL, Range (130-400), *Mean Platelet Volume 7.1 - L fL, Range (7.4-10.4), Neutrophil 65 %, Range (42-75), *Band 3 - L %, Range (5-11), Lymphocytes 22 %, Range (21-51), Monocytes 8 %, Range (0-10), Eosinophils 1 %, Range (0-10), Basophils 1 %, Range (0-2), Hypochromia SLIGHT = 6-15 cells (100X), Range (0-5/hpf), PLT Morphology Comment Appears Adequate . (09:30 JROB) Cardiac Profile w/CKMB & TropI Collection DT: Courtney Jul 23, 2016 08:09, CKMB 1.6 ng/mL, Range (0-6.6), Troponin I Less than 0.010 ng/mL, Range (< 0.028), Reference Range &a-1R&a+25V*p+0X*j5902Q*c202B*c15G*c2P*p-0X&a-25V&a+1R Name: Sheri Rojas : 1925 F89 MedRec: [id number] AcctNum: [id number] Prepared: Courtney Jul 23, 2016 12:39 by Interface Page 10 of 11 pMD [facility] EMERGENCY RECORD , 0.00 - 0.028 ng/mL Negative 0.029 - 0.29 ng/mL , Indeterminate Greater or Equal to 0.3 ng/mL Strongly suggests AL , . (09:30 JRASHTYN) King: AIDA=DAMIEN Smith, Luisa WINSTON=DAMIEN Cárdenas, Beverly SHEIKH=MD Jose R, Paco MCBE=Elana Wallace &a-1R&a+25V*p+0X*s3831I*c202B*c15G*c2P*p-0X&a-25V&a+1R Name: Sheri Rojas : 1925 F89 MedRec: [id number] AcctNum: [id number] Prepared: Courtney Jul 23, 2016 12:39 by Interface Page 11 of 11 pMD MTDD
== END 2016-07-23 12:20 | disposition short-term general hospital (02) ==
LOC: NAV ERS 07:23
DX: R07.9 Chest pain, unspecified (principal); R53.1 Weakness; E11.9 Type 2 diabetes mellitus without complications; E03.9 Hypothyroidism, unspecified; E78.5 Hyperlipidemia, unspecified; I10 Essential (primary) hypertension; Z90.49 Acquired absence of other specified parts of digestive tract; Z90.710 Acquired absence of both cervix and uterus
CPT/HCPCS: 71010; 80053; 81001; 82550; 82553; 84484; 85025; 87086; 93005

== ENCOUNTER 2016-10-20 06:02 | Emergency (ER) | payer MEDICARE ==
[2016-10-20] MEDS ORDERED: Acetaminophen 325 MG TAB ONE (07:28)
--- NOTE | 2016-10-20 07:43 | CT ---
CT BRAIN WITHOUT CONTRAST: HISTORY: Fall. No loss of consciousness, headache. FINDINGS: Comparison is made with the exam of 03/22/16. Densely calcified meningiomas in the medial left frontal lobe anteriorly, anterior right frontal lob e, and the medial aspect of the left middle cranial fossa are stable. The tiny low-density focus al kimberlee the anterior interhemispheric falx consistent with a small lipoma is again seen. Changes of cortical atrophy and chronic small-vessel ischemic disease are again noted. The ventricu lar size is stable and the basilar cisterns are patent. No evidence of acute infarct, hemorrhage, m idline shift, or abnormal extraaxial fluid collections are seen. The bony calvarium is intact. The visualized paranasal sinuses and mastoid air cells are well aerated. IMPRESSION: 1. No CT evidence of acute intracranial process. 2. Stable multiple calcified intracranial meningiomas. POS: JAZZY
--- NOTE | 2016-10-20 07:55 | RAD ---
4 VIEWS RIGHT ELBOW: Date: 10/20/16 HISTORY: Fall with right arm pain. FINDINGS: AP, lateral, and both oblique views of right elbow obtained. There is a moderately displaced fractur e through the distal right humeral condyles. The distal fracture fragment is moderately displaced. T he proximal aspect of the humerus and radius are unremarkable. IMPRESSION: Distal right humeral fracture. POS: [facility]
--- NOTE | 2016-10-20 08:20 | RAD ---
AP AND OBLIQUE VIEWS RIGHT RIBS: HISTORY: Fall with right rib pain. FINDINGS: AP and oblique views right ribs were obtained. No evidence of right rib fractures, subluxations, or bony lesions seen. IMPRESSION: Normal right rib series. POS: [id number]
== END 2016-10-20 10:05 | disposition home or self-care (01) ==
LOC: NAV ERS 06:02
DX: S42.401A Unspecified fracture of lower end of right humerus, initial encounter for closed fracture (principal); E11.9 Type 2 diabetes mellitus without complications; E03.9 Hypothyroidism, unspecified; E78.5 Hyperlipidemia, unspecified; I10 Essential (primary) hypertension; Z79.4 Long term (current) use of insulin; W19.XXXA Unspecified fall, initial encounter
CPT/HCPCS: 70450

== ENCOUNTER 2016-11-29 09:42 | Outpatient (CLI) | payer MEDICARE ==
[2016-11-29 13:30] LABS: ALT (SGPT) 11 U/L (8-55); AST (SGOT) 17 U/L (5-34); Albumin 3.8 g/dL (3.4-4.8); Alkaline Phosphatase 97 U/L (40-150); Anion Gap 17 mmol/L (10-20); BUN (Urea Nitrogen) 9 mg/dL (9.8-20.1); Bilirubin, Total 0.7 mg/dL (0.2-1.2); Calc. Creatinine Clearance 0 mL/min (70-130); Carbon Dioxide 24 mmol/L (23-31); Cardiac Risk 5.2 (Less than 4.5); Chloride 100 mmol/L (98-107); Cholesterol 177 mg/dl (< 200 Desired); Estimated GFR-MDRD 75; Globulin 3.2 g/dL (2.4-3.5); Glucose 122 mg/dL (83-110); HDL Cholesterol 34 mg/dL (>60 Neg Risk); LDL Cholesterol, Calculated 103 mg/dL; Potassium 4.1 mmol/L (3.5-5.1); Sodium 137 mmol/L (136-145); Triglycerides 200 mg/dL (Less than 150)
[2016-11-29 13:40] LABS: #Basophils 0.1 thou/uL (0.0-0.2); #Eosinphils 0.1 thou/uL (0.0-0.7); #Lymphocytes 1.3 thou/uL (1.20-3.40); #Monocytes 0.4 thou/uL (0.11-0.59); %Monocytes 6.7 % (0.0-10.0); %Neutrophils 69.2 % (42.0-75.0); Hemoglobin 13.1 g/dL (12.0-16.0); Mean Corpuscular HGB CONC 32.8 g/dL (32.0-36.0); Mean Corpuscular Volume 94.4 fl (81.0-99.0); Mean Platelet Volume 6.8 fL (7.4-10.4); Platelet Count 196 thou/uL (130-400); RBC Distribution Width 13.3 % (11.5-14.5); Red Blood Cell (RBC) Count 4.21 mill/uL (4.20-5.40); White Blood Cell (WBC) Count 5.7 thou/uL (4.8-10.8)
[2016-11-29 13:55] LABS: Hemoglobin A1c 8.4 % (4.0-6.0)
[2016-11-29 13:59] LABS: Bilirubin Negative (Negative); Blood, Urine Negative (Negative); Clarity Clear (Clear); Glucose, Urine (Dipstick) Negative (Negative); Leukocyte Large (Negative); Nitrite Negative (Negative); Protein, Urine (Dipstick) Negative (Neg-Trace); Specific Gravity, Urine 1.015 (1.005-1.030); Urobilinogen 0.2 mg/dL (0.2-1.0); pH, Urine 7.5 (5.0-9.0)
[2016-11-29 14:54] LABS: Bacteria/HPF 3+ HPF (None Seen); RBC/HPF 0-3 HPF (0-3); Squamous Epithelial 0-3 HPF (0-3); WBC/HPF 0-3 HPF (0-3)
[2016-11-29 15:26] LABS: MNO Fail-Action Taken COMPLETE; MNO Fail/No ABN COMPLETE
[2016-11-29 15:27] LABS: MNO Fail-Storage NOT STORED
== END 2016-11-29 09:43 | disposition home or self-care (01) ==
LOC: NAVSJIPCSP 09:42
PROVIDERS: ATTEND Internal Medicine
DX: I10 Essential (primary) hypertension (principal); Z79.899 Other long term (current) drug therapy
CPT/HCPCS: 36415; 80053; 80061; 81003; 81015; 83036; 83880; 84443; 85025